=== PATIENT | female | born 1985 | race American Indian/Alaskan Native ===

== ENCOUNTER 2017-07-19 12:34 | Emergency (ER) | payer OTHER ==
[2017-07-19 12:46] VITALS: BP 142/89
--- NOTE | 2017-07-19 13:20 | Cat Scan Report ---
CT HEAD WITHOUT CONTRAST: 07/19/17 12:34:00 CLINICAL: Loss it 2 days ago. Slurred speech and twisted mouth.. TECHNIQUE: 2.5-mm noncontrast scans. COMPARISON:None FINDINGS: The ventricles and sulci are normal for age.Subtle focal hypodensities in the right parietal lobe with minimal mass effect and no hemorrhage. No other abnormal density. No mass or extra-axial collection The sinuses are clear. Normal orbits and soft tissues. The calvarium and skull base are intact. IMPRESSION: Suspect subacute nonhemorrhagic right parietal lobe infarcts.
[2017-07-19 14:05] LABS: Basophils % (Auto) 0.6 % (0.0-1.8); Eosinophils % (Auto) 0.8 % (0.0-4.3); Hematocrit 38.3 % (30.3-42.9); Hemoglobin 12.8 gm/dl (10.1-14.3); Mean Corpuscular HGB Conc 33 % (30-34); Mean Corpuscular Hemoglobin 29 pg (28-32); Mean Corpuscular Volume 88 fl (79-97); Platelet Count 275 K/mm3 (140-440); Red Blood Count 4.37 M/mm3 (3.65-5.03); Red Cell Distribution Width 13.3 % (13.2-15.2); White Blood Count 7.2 K/mm3 (4.5-11.0)
[2017-07-19 14:12] LABS: INR 1.04 (0.87-1.13); Partial Thromboplastin Time 30.9 Sec. (24.2-36.6)
[2017-07-19 14:23] LABS: Anion Gap 17 mmol/L; BUN/Creatinine Ratio 13; Blood Urea Nitrogen 8 mg/dL (7-17); Calcium 9.1 mg/dL (8.4-10.2); Carbon Dioxide 23 mmol/L (22-30); Chloride 105.2 mmol/L (98-107); Glucose 81 mg/dL (65-100); Potassium 3.8 mmol/L (3.6-5.0); Sodium 141 mmol/L (137-145)
== END 2017-07-19 17:30 | disposition left against medical advice (07) ==
LOC: ED 12:34
DX: R47.81 Slurred speech (principal); Z53.21 Procedure and treatment not carried out due to patient leaving prior to being seen by health care provider
CPT/HCPCS: 36415; 70450; 80048; 84484; 85025; 85610; 85670; 85730

== ENCOUNTER 2017-07-19 20:28 | Inpatient (IN) | payer OTHER ==
--- NOTE | 2017-07-19 21:11 | Emergency Department Report ---
ED Neuro Deficit HPI - General Chief Complaint: Neuro Symptoms/Deficit Stated Complaint: ER CALL BACK Time Seen by Provider: 07/19/17 20:58 Source: patient Mode of arrival: Ambulatory Limitations: No Limitations - History of Present Illness Initial Comments: 32 years old female with no significant past medical history presented today with difficulty speaking and left facial droop started all of a sudden yesterday , patient stated that she ignored but she woke up this morning stating symptoms is getting worse. Patient stated that her symptoms improving now. Patient denied weakness numbness or tingling sensation. No bowel or bladder incontinence. No other complaints. -: Sudden, Last night Location: speech, left face Presenting Symptoms: Present: Unable to Speak Clearly History of same: No Place: home Severity: moderate Associated Symptoms: denies other symptoms - Related Data Allergies/Adverse Reactions: Allergies Allergy/AdvReac Type Severity Reaction Status Date / Time No Known Allergies Allergy Verified 07/19/17 20:52 ED Review of Systems ROS: Stated complaint: ER CALL BACK Other details as noted in HPI Comment: All other systems reviewed and negative Constitutional: denies: chills, fever ENT: denies: throat pain Respiratory: denies: cough, orthopnea, shortness of breath, SOB with exertion Cardiovascular: denies: chest pain, palpitations, dyspnea on exertion Gastrointestinal: denies: abdominal pain, nausea, vomiting, diarrhea, constipation, hematemesis Neurological: denies: headache, weakness, numbness, paresthesias, confusion, abnormal gait, vertigo ED Past Medical Hx - Past Medical History Previous Medical History?: No - Surgical History Past Surgical History?: No - Social History Smoking Status: Never Smoker Substance Use Type: None ED Neuro Physical Exam - General Limitations: No Limitations General appearance: alert, in no apparent distress Suspected Stroke: Yes - Head Head exam: Present: atraumatic, normocephalic, normal inspection - Eye Eye exam: Present: normal appearance, PERRL Pupils: Present: normal accommodation - ENT ENT exam: Present: normal exam, normal orophraynx, mucous membranes moist - Neck Neck exam: Present: normal inspection, full ROM. Absent: tenderness, meningismus, lymphadenopathy, thyromegaly - Respiratory Respiratory exam: Present: normal lung sounds bilaterally. Absent: respiratory distress, wheezes, rales, rhonchi, stridor, chest wall tenderness, accessory muscle use, decreased breath sounds, prolonged expiratory - Cardiovascular Cardiovascular Exam: Present: regular rate, normal rhythm, normal heart sounds - GI/Abdominal GI/Abdominal exam: Present: soft, normal bowel sounds. Absent: distended, tenderness, guarding, rebound, rigid, diminished bowel sounds, organomegaly, mass, bruit, pulsatile mass, hernia - Extremities Exam Extremities exam: Present: normal inspection, full ROM, normal capillary refill. Absent: tenderness, pedal edema, joint swelling - Back Exam Back exam: Present: normal inspection, full ROM. Absent: tenderness, CVA tenderness (R), CVA tenderness (L), muscle spasm, paraspinal tenderness, vertebral tenderness - Neurological Exam Neurological exam: Present: alert, oriented X3, CN II-XII intact, normal gait, reflexes normal. Absent: motor sensory deficit - NIHSS Assessment Interval: Baseline 1a. Level of Consciousness: alert 1b. LOC Questions: answers correctly 1c. LOC Commands: performs tasks correctly 2. Best Gaze: normal 3. Visual: no visual loss 4. Facial Palsy: normal symmetrical movement 5b. Motor Arm Right: no drift 5a. Motor Arm Left: no drift 6a. Motor Leg Left: no drift 6b. Motor Leg Right: no drift 7. Limb Ataxia: absent 8. Sensory: normal 9. Best Language: mild/moderate aphasia 10. Dysarthria: mild/moderate dysarthria 11. Extinction/Inattention: no abnormality Total Score: 2 Stroke Severity: Minor Stroke - Skin Skin exam: Present: warm, intact, normal color. Absent: cyanosis, diaphoretic, erythema, urticaria ED Course Vital Signs 07/19/17 21:15 Temperature 98.5 F Pulse Rate 65 Respiratory 18 Rate Blood Pressure 126/74 [Left] O2 Sat by Pulse 100 Oximetry - Lab Data Result diagrams: 07/19/17 21:19 07/19/17 21:19 Lab Results 07/19/17 07/19/17 07/19/17 Range/Units 21:19 21:19 21:19 WBC 7.1 (4.5-11.0) K/mm3 RBC 4.18 (3.65-5.03) M/mm3 Hgb 12.6 (10.1-14.3) gm/dl Hct 36.9 (30.3-42.9) % MCV 88 (79-97) fl MCH 30 (28-32) pg MCHC 34 (30-34) % RDW 13.2 (13.2-15.2) % Plt Count 271 (140-440) K/mm3 Lymph % (Auto) 32.1 (13.4-35.0) % Union % (Auto) 7.7 H (0.0-7.3) % Eos % (Auto) 0.9 (0.0-4.3) % Baso % (Auto) 0.4 (0.0-1.8) % Lymph # 2.3 (1.2-5.4) K/mm3 Union # 0.5 (0.0-0.8) K/mm3 Eos # 0.1 (0.0-0.4) K/mm3 Baso # 0.0 (0.0-0.1) K/mm3 Seg Neutrophils % 58.9 (40.0-70.0) % Seg Neutrophils # 4.2 (1.8-7.7) K/mm3 PT 14.1 (12.2-14.9) Sec. INR 1.04 (0.87-1.13) APTT 31.6 (24.2-36.6) Sec. Thrombin Time 16.3 (15.1-19.6) Sec. Sodium 140 (137-145) mmol/L Potassium 3.7 (3.6-5.0) mmol/L Chloride 103.4 (98-107) mmol/L Carbon Dioxide 22 (22-30) mmol/L Anion Gap 18 mmol/L BUN 7 (7-17) mg/dL Creatinine 0.6 L (0.7-1.2) mg/dL Estimated GFR > 60 ml/min BUN/Creatinine Ratio 12 % Glucose 87 (65-100) mg/dL Calcium 9.2 (8.4-10.2) mg/dL Total Bilirubin 0.30 (0.1-1.2) mg/dL AST 13 (5-40) units/L ALT 9 (7-56) units/L Alkaline Phosphatase 64 (35-129) units/L Total Creatine Kinase 114 (30-135) units/L CK-MB (CK-2) < 1.0 (0.0-4.0) ng/mL CK-MB (CK-2) Rel Index 0.8 (0-4) Troponin T < 0.010 (0.00-0.029) ng/mL Total Protein 7.1 (6.3-8.2) g/dL Albumin 4.4 (3.9-5) g/dL Albumin/Globulin Ratio 1.6 % - Radiology Data Radiology results: report reviewed Referring Physician: HEIDY BAY Patient Name: MATHWE DILLON Date of : 1985 Sex: Female Report Date: 2017-07-19 Report Status: Finalized Findings [facility] [address] [place] [address] Cat Scan Report Signed Patient: MATHEW DILLON MR#: [id number] : 1985 Acct:[id number] Age/Sex: 32 / F ADM Date: 07/19/17 Loc: ED Attending Dr: Ordering Physician: HEIDY BAY MD Date of Service: 07/19/17 Procedure(s): CT head/brain wo con Accession Number(s): [id number] cc: HEIDY BAY MD CT HEAD WITHOUT CONTRAST: 07/19/17 12:34:00 CLINICAL: Loss it 2 days ago. Slurred speech and twisted mouth.. TECHNIQUE: 2.5-mm noncontrast scans. COMPARISON:None FINDINGS: The ventricles and sulci are normal for age.Subtle focal hypodensities in the right parietal lobe with minimal mass effect and no hemorrhage. No other abnormal density. No mass or extra-axial collection The sinuses are clear. Normal orbits and soft tissues. The calvarium and skull base are intact. IMPRESSION: Suspect subacute nonhemorrhagic right parietal lobe infarcts. Transcribed By: REF Dictated By: RIMA ELLER MD Electronically Authenticated By: RIMA ELLER MD Signed Date/Time: 07/19/171315 DD/ 12 TD/TT: 07/19/171315 - Medical Decision Making Discussed patient with Dr. Noble, I presented the patient to him, he agreed to admit the patient to his service. Critical care attestation.: If time is entered above; I have spent that time in minutes in the direct care of this critically ill patient, excluding procedure time. ED Disposition Clinical Impression: Stroke Disposition: OP ADMIT IP TO THIS HOSP Is pt being admited?: Yes Condition: Stable Referrals: PRIMARY CARE,MD [Primary Care Provider] - 3-5 Days
[2017-07-19 21:55] LABS: Basophils % (Auto) 0.4 % (0.0-1.8); Eosinophils % (Auto) 0.9 % (0.0-4.3); Hematocrit 36.9 % (30.3-42.9); Hemoglobin 12.6 gm/dl (10.1-14.3); Mean Corpuscular HGB Conc 34 % (30-34); Mean Corpuscular Hemoglobin 30 pg (28-32); Mean Corpuscular Volume 88 fl (79-97); Platelet Count 271 K/mm3 (140-440); Red Blood Count 4.18 M/mm3 (3.65-5.03); Red Cell Distribution Width 13.2 % (13.2-15.2); White Blood Count 7.1 K/mm3 (4.5-11.0)
[2017-07-19 22:03] LABS: INR 1.04 (0.87-1.13)
[2017-07-19 22:04] LABS: Alanine Aminotransferase 9 units/L (7-56); Albumin 4.4 g/dL (3.9-5); Albumin/Globulin Ratio 1.6 %; Alkaline Phosphatase 64 units/L (35-129); Anion Gap 18 mmol/L; BUN/Creatinine Ratio 12; Blood Urea Nitrogen 7 mg/dL (7-17); Calcium 9.2 mg/dL (8.4-10.2); Carbon Dioxide 22 mmol/L (22-30); Chloride 103.4 mmol/L (98-107); Creatine Kinase 114 units/L (30-135); Creatine Kinase MB < 1.0 ng/mL (0.0-4.0); Glucose 87 mg/dL (65-100); Partial Thromboplastin Time 31.6 Sec. (24.2-36.6); Potassium 3.7 mmol/L (3.6-5.0); Sodium 140 mmol/L (137-145); Total Protein 7.1 g/dL (6.3-8.2)
[2017-07-19] MEDS ORDERED: SODIUM CHLORIDE FLUSH SYRINGE 10 ML IV PRN (23:22)
[2017-07-20 00:03] LABS: Urine Drugs of Abuse Note Disclamer
[2017-07-20 00:16] LABS: Bacteria,Urine 1+ /HPF (Negative); Bilirubin,Urine NEG (Negative); Blood,Urine LG (Negative); Ketones,Urine 20 mg/dL (Negative); Leukocyte Esterase,Urine SM (Negative); Mucus,Urine 2+ /HPF; Nitrite,Urine NEG (Negative); Urobilinogen,Urine < 2.0 mg/dL (<2.0)
[2017-07-20 00:50] LABS: Creatine Kinase 105 units/L (30-135)
[2017-07-20 01:12] LABS: Creatine Kinase MB < 1.0 ng/mL (0.0-4.0)
--- NOTE | 2017-07-20 05:54 | History and Physical Report ---
CHIEF COMPLAINT: Speech impairment. Other complaint includes facial drooping. HISTORY OF PRESENTING ILLNESS: The patient is a 32-year-old female, who said that she developed difficulty with speech on 07/18/2017 and noted that it started all of a sudden and patient, however, said that she also had left facial drooping and she initially ignored it, but woke up the morning of 07/19/2017 with symptoms getting worse and said that facial drooping improved and resolved reasonably well and also had speech improved, but did not get back completely to normal. The patient also admitted to feeling weak on the left side of the body and said that a week prior to these symptoms, she noticed a brief moment of visual blurring while she was working on the computer which was worse on the right eye than the left. The blurry vision cleared. There was no history of headachy. No prior history of any numbness or dizziness and no history of chest pain or shortness of breath. The patient was seen in the Emergency Room and evaluated. PAST MEDICAL HISTORY: Unremarkable. PAST SURGICAL HISTORY: Unremarkable. FAMILY HISTORY: There is no family history of stroke, diabetes mellitus, hypertension, or heart disease. PAST SURGICAL HISTORY: Unremarkable. SOCIAL HISTORY: The patient does not smoke, does not drink alcohol, and does not use illicit drugs. MEDICATIONS: The patient is not on any regular home medications. ALLERGIES: There are no known drug allergies. REVIEW OF SYSTEMS: CONSTITUTIONAL: There is no fever, chills, or diaphoresis. HEENT: There is no headache or sore throat. There is history of blurry vision. CARDIOVASCULAR SYSTEM: There is no chest pain or orthopnea. RESPIRATORY SYSTEM: There is no shortness of breath or cough. GASTROINTESTINAL SYSTEM: There is no nausea, no vomiting, no abdominal pain, diarrhea, or constipation. NEUROLOGICAL SYSTEM: Speech impairment noted, left facial drooling noted, blurry vision noted. There is no change in mental status. MUSCULOSKELETAL SYSTEM: There is no joint pain or swelling. DERMATOLOGICAL SYSTEM: There is no skin rash or itching. GENITOURINARY SYSTEM: There is no dysuria, hematuria, or flank pain. Rest of system review is normal. PHYSICAL EXAMINATION: GENERAL: At the time of exam, patient was found to be alert, oriented x 3, and not in acute distress. VITAL SIGNS: Shows temperature of 98.1 degrees Fahrenheit, pulse of 68, respiration 18, blood pressure 115/76, O2 sat of 98% on room air. HEENT: Show pupils to be equal, round, reactive to light and accommodation. Extraocular muscles are intact. NECK: Supple with no JVD or carotid bruit. CARDIOVASCULAR SYSTEM: Show first and second heart sounds with no gallops or murmurs. RESPIRATORY SYSTEM: Show good air entry on both sides of the lungs with no abnormal breath sounds. GASTROINTESTINAL SYSTEM: Show abdomen to be full, soft, nontender with no organomegaly or rigidity. NEUROLOGICAL: Shows drooling of the face on the left side and there is also muscle weakness on the left side of the body compared to the right with muscle strength of 5/6 on the left upper extremity compared to 6/6 on the right upper extremity and there is a muscle strength of 4/6 on the left lower extremity compared to 6/6 on the right lower extremity. There is no loss of sensory function. The patient has also mild dysarthria when she tries to talk. MUSCULOSKELETAL SYSTEM: Show no joint swelling or tenderness. DERMATOLOGICAL SYSTEM: Show no skin rash. GENITOURINARY SYSTEM: Show no costovertebral angle tenderness. PERTINENT LABORATORY AND IMAGING STUDIES: The patient had CT of the head done that shows suspected subacute nonhemorrhagic right parietal lobe infarct and patient's lab results showed normal CBC with elevated monocyte count of 7.7% on CBC differential. Coagulation studies were unremarkable. Chemistry came back unremarkable. Cardiac enzymes were unremarkable. Urinalysis came back unremarkable. The patient's urine drug screen was unremarkable as such. DIAGNOSES: 1. Subacute cerebral infarct. 2. Speech impairment. PLAN: The patient will be admitted to medical floor and we will have MRI of the brain without contrast done in the morning. Also, the patient will have MRI/MRA of the head without contrast done in the morning and will have bilateral carotid Doppler checked in the morning and complete echocardiogram done also this morning. The patient will remain n.p.o. as stroke protocol and will be on neuro check every 4 hours until seen by the neurologist. The patient will have Speech Therapy evaluation to check for swallowing test and will have Neurology consult with Dr. Hahn, who will see patient today 07/20/2017 during ____ patient will also have Physical Therapy consult as well as Occupational Therapy consult today and will be on aspirin 325 mg daily. The patient will also be on IV normal saline at 100 mL an hour and will be on oxygen by nasal cannula at 2 liters per minute. The patient will have bilateral carotid Doppler done this morning and will also have blood pressure monitored. The patient will also have other stroke treatment protocol applied and DVT prophylaxis would be through sequential compressive device. The patient will have cardiac enzymes checked q.6 hours x 2 more levels. JOB# [id number] OCN/NTS MTDD
[2017-07-20 07:09] LABS: Creatine Kinase 92 units/L (30-135)
[2017-07-20 07:16] LABS: Creatine Kinase MB < 1.0 ng/mL (0.0-4.0)
[2017-07-20] MEDS: ASPIRIN PO SCH (09:15)
[2017-07-20] MEDS ORDERED: ATIVAN IV ONE ×2 (11:54→12:40)
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
--- NOTE | 2017-07-20 14:18 | Magnetic Resonance Report ---
FINAL REPORT EXAM: MR BRAIN WO CON HISTORY: stroke TECHNIQUE: MRI brain without contrast PRIORS: None. FINDINGS: Multiple areas of increased T2 signal are present within the supratentorial white matter. The largest seen is at the right temporal white matter and measures 2.2 x 2.1 centimeters. There is acute diffusion restriction corresponding to this lesion which has a ring-like pattern on ADC. Seen on FLAIR sequence at the centrum semiovale are multiple ovoid 2 rounded areas of abnormal signal some of these are in a periventricular pericallosal distribution others are subcortical largest seen on the left measures 1.0 x 0.9 centimeters. There is a questionable area of increased signal within cerebellar vermis on FLAIR measuring approximately 0.4 centimeters. No acute intra or extra-axial hemorrhage is identified. No evidence for mass effect or midline shift. No evidence for meningeal thickening. IMPRESSION: Multiple areas of abnormal increased signal within white matter and possible small cerebellar lesion. One of these in the right temporal white matter demonstrates diffusion restriction Findings are most suggestive of demyelinating plaques likely multiple sclerosis with an area of active plaque in the right temporal lobe
--- NOTE | 2017-07-20 14:20 | Magnetic Resonance Report ---
FINAL REPORT EXAM: MR MRA/MRV HEAD WO CON HISTORY: stroke MR angiogram head [id number] PRIORS: None. FINDINGS: Normal appearance of the intracranial portion of the carotid arteries. The MCA and DEVON distributions are unremarkable Distal vertebral arteries are intact. The basilar and [employer] circulation is within normal limits No evidence for major vascular occlusion or aneurysm IMPRESSION: Normal MRA head
[2017-07-20] MEDS: NACL 0.9% 1000 ML 1,000 ML IV SCH (15:40)
--- NOTE | 2017-07-20 16:20 | Consultation ---
History of Present Illness Consult date: 07/20/17 History of present illness: went over the exam and MRI this is multiple sclerosis the facial dyskineses is almost diagnostic plus the MRI plan copaxone therapy I will give her literature from office tomorrow on Friday to get the drug started through outpatient program Medications and Allergies Allergies Allergy/AdvReac Type Severity Reaction Status Date / Time No Known Allergies Allergy Verified 07/19/17 20:52 Active Meds: Active Medications Aspirin (Aspirin) 325 mg PO QDAY MARSHAL Last Admin: 07/20/17 09:15 Dose: 325 mg Atorvastatin Calcium (Lipitor) 40 mg PO QHS [facility] Sodium Chloride (Nacl 0.9% 1000 Ml) 1,000 mls @ 100 mls/hr IV DIRECT MARSHAL Sodium Chloride (Sodium Chloride Flush Syringe 10 Ml) 10 ml IV PRN PRN PRN Reason: LINE FLUSH Physical Examination - Vital Signs Vital Signs: Vital Signs Temp Pulse Resp BP Pulse Ox 98.5 F 65 18 126/74 100 07/19/17 21:15 07/19/17 21:15 07/19/17 21:15 07/19/17 21:15 07/19/17 21:15 Results - Laboratory Findings CBC and BMP: 07/19/17 21:19 07/19/17 21:19 Abnormal Lab Findings: Abnormal Labs 07/19/17 07/19/17 07/19/17 21:19 21:19 23:43 Kidder % (Auto) 7.7 H Creatinine 0.6 L U Epithel Cells (Auto) 14.0 H
[2017-07-21] MEDS: NACL 0.9% 1000 ML 1,000 ML IV SCH (04:48)
[2017-07-21 07:00] VITALS: BP 113/75
[2017-07-21] MEDS: ASPIRIN PO SCH (10:03)
--- NOTE | 2017-07-21 16:13 | Discharge Summary ---
Providers - Providers Date of Admission: 07/19/17 23:19 Date of discharge: 07/21/17 Attending physician: EMMA DAVIS 07/19/17 23:12 Speech Therapy Evaluation and Treat [CONS] Stat Reason For Exam: failed swallow screen 07/19/17 23:34 Occupational Therapy Evaluate and Treat [CONS] Routine Comment: Reason For Exam: Neuro deficits Physical Therapy Evaluation and Treat [CONS] Routine Comment: Reason For Exam: Neuro deficits 07/20/17 06:47 Consult to Physician [CONS] Routine Consulting Provider: RIMA BENSON Reason For Exam: SUBACUTE INFART ON HEAD CT,DYSARTHRIA,FACIAL DROOP Place consult to:: RIAM BENSON Notified:: Huyen JENKINS Phone number called:: Was contact made?: Yes If yes, spoke with:: [facility] service Time called:: 08:10 Primary care physician: [employer] Hospitalization Condition: Stable Hospital course: Patient is 32-year-old right-handed woman who presented to emergency department with slurred speech, CT head reported as subacute nonhemorrhagic right parietal lobe infarcts -NO Acute vs subacute ischemic stroke, MRI showing plaques indicative of MS -Multiple sclerosis -Dysarthria resolved -Facial asymmetry Disposition: DC-01 TO HOME OR SELFCARE Time spent for discharge: 35 minutes Core Measure Documentation - Palliative Care Palliative Care/ Comfort Measures: Not Applicable - Core Measures Any of the following diagnoses?: none - VTE Discharge Requirements Deep Vein Thrombosis/Pulmonary Embolism Present on Admission: No Has pt received <5 days of overlap therapy or INR<2.0: No Anticoagulant overlap therapy prescribed at discharge: No Contraindication No Overlap Therapy order at DC: Not Indicated Exam - Physical Exam Narrative exam: GEN: WDWN, NAD, AWAKE, ALERT, ORIENTATED 3 HEENT: NCAT, EOMI, PERRL, OP Clear NECK: supple, no adenopathy, no thyromegaly, no JVD CVS/HEART: RRR, NORMAL S1S2, NO JVD, pulses present bilaterally CHEST/LUNGS: CTA B, Symmetrical chest expansion, good air entry bilaterally GI/Abdomen: soft, NTND, good bowel sounds, no guarding or rebound /Bladder: no suprapubic tenderness, no CVA or paraspinal tenderness EXT/Skin: no c/c/e, no obvious rash MSK: FROM x 4, slightly weaker than right Neuro: CN 2-12 grossly intact, facial symmetry Psych: calm - Constitutional Vitals: Temp Pulse Resp BP Pulse Ox 97.8 F 76 18 113/75 98 07/21/17 04:25 07/21/17 12:03 07/21/17 04:25 07/21/17 04:25 07/21/17 10:00 Plan Activity: no driving until cleared by PCP, fall precautions, other (no strenous activity until cleared by Dr. benson) Diet: regular Follow up with: PRIMARY CAREMD [Primary Care Provider] - 3-5 Days RIMA BENSON MD [Staff Physician] - 7 Days
--- NOTE | 2017-07-25 12:55 | Query- General ---
Nithin Sanchez Johnny Date:___07/25/17 Community Development Manager/CDS:___Mireillesa / Javon Phone#:_[phone] Exercise your independent professional judgment when responding to this query. Questions asked do not imply a particular answer is desired or expected. We greatly appreciate your clarification on this issue. Clinical Documentation States: 32 year old female was admitted on 07/19/17 The discharge summary (Dr. Turner) states " Patient is 32-year-old right- handed woman who presented to emergency department with slurred speech, CT head reported as subacute nonhemorrhagic right parietal lobe infarcts -NO Acute vs subacute ischemic stroke, MRI showing plaques indicative of MS -Multiple sclerosis " Clinical Findings Show (include reference to source document): BMI: 18.9 Given the above clinical scenario can you please provide an appropriate diagnosis based on your knowledge of the patient: PHYSICIAN RESPONSE: [ ] Underweight [ ] Weight loss [ ] Cachexia [ ] Anorexia [ ] undernutrition [ ] unable to determine [ x ] Other (Please specify) most likely mild malnutrition, poa Present on Admission: [x ] Yes (Y) [ ] Clinically undeterminable (W) [ ]No(N) Please also document response in your Progress Notes and/or Discharge Summary and indicate if the condition was present on admission. MTDD
== END 2017-07-21 18:38 | disposition home or self-care (01) | DRG 59 ==
LOC: ED 20:28 → 4A 23:19
PROVIDERS: ADMIT Internal Medicine; ATTEND Internal Medicine
DX: G35 Multiple sclerosis (principal); E44.1 Mild protein-calorie malnutrition; R47.1 Dysarthria and anarthria; F40.240 Claustrophobia; Z79.82 Long term (current) use of aspirin; R47.81 Slurred speech
CPT/HCPCS: 36415; 70544; 70551; 80053; 80061; 80307; 81001; 82550; 82553; 82962; 84484; 85025; 85610; 85670; 85730; 93005; 93010; 93306; 93880; A9270-GY; G8996-GN; G8997-GN; G8998-GN; J2060; J7030